=== PATIENT | male | born 1975 | race Caucasian/White ===

== ENCOUNTER 2023-05-24 10:36 | Emergency (ER) | payer MEDICAID ==
[2023-05-24 11:30] LABS: INFLUENZA A NAA POSITIVE (NEGATIVE); INFLUENZA B NAA NEGATIVE (NEGATIVE)
[2023-05-24 11:33] LABS: CORONAVIRUS COVID-19 NAA POSITIVE (NEGATIVE)
== END 2023-05-24 11:48 | disposition home or self-care (01) ==
LOC: FB.ED 10:36
DX: U07.1 COVID-19 (principal); J10.1 Influenza due to other identified influenza virus with other respiratory manifestations; F17.210 Nicotine dependence, cigarettes, uncomplicated
CPT/HCPCS: 0240U; 99284